=== PATIENT | male | born 1960 | race Caucasian/White ===

== ENCOUNTER 2023-12-15 08:11 | Outpatient (CLI) | payer BC, SELFPAY | END 2023-12-15 08:12 | disposition home or self-care (01) | PROVIDERS: PCP Student in an Organized Health Care Education/Training Program; Visit Provider Nurse Practitioner Family | DX: E11.621 Type 2 diabetes mellitus with foot ulcer (principal); L97.515 Non-pressure chronic ulcer of other part of right foot with muscle involvement without evidence of necrosis; L97.522 Non-pressure chronic ulcer of other part of left foot with fat layer exposed; L97.418 Non-pressure chronic ulcer of right heel and midfoot with other specified severity; I89.0 Lymphedema, not elsewhere classified; I73.9 Peripheral vascular disease, unspecified; Z79.4 Long term (current) use of insulin | CPT/HCPCS: 11042; 11043; 87070; 87186; 97597; G0463 ==

== ENCOUNTER 2023-12-15 10:35 | Outpatient (CLI) | payer BC, SELFPAY ==
--- NOTE | 2023-12-15 10:30 | XR_ITS ---
Final Report Patient: RODERICK RAMSAY Facility:?[facility] Patient ID:?[id number] Site Patient ID:?[id number]. Site :?1960 Study:?XRay Extremity Left 2V GREAT TOE-12/15/2023 11:29:42 AM Ordering Physician:BARBARA Final Report: Indication: Follow-up infection Technique: Two views left great toe Comparison: None Findings: Soft tissue swelling is present. No soft tissue gas or radiodense foreign body. Degenerative changes. Vascular calcifications. Incidental sesamoid bone noted at the plantar aspect of the interphalangeal joint. No periostitis or acute fracture. Impression: No evidence of acute fracture or acute osteomyelitis. Dictated by Shubham Ortiz MD @ 12/15/2023 12:02:59 PM (Electronic Signature)
--- NOTE | 2023-12-15 10:45 | XR_ITS ---
Final Report Patient: RODERICK RAMSAY Facility:?[facility] Patient ID:?[id number] Site Patient ID:?[id number]. Site :?1960 Study:?XRay Extremity Right 2V FOOT-12/15/2023 11:27:23 AM Ordering Physician:BARBARA Final Report: Indication: Follow-up surgery Technique: Right foot 2 views Comparison: None Findings: Calcaneus intact. Chronic changes to the navicular at the dorsal aspect. Severe hallux valgus with bunion. Multifocal postop changes to the forefoot including multiple bone resections. No evidence of acute fracture or acute periostitis. Impression: Multifocal postop changes to the forefoot without evidence of acute osteomyelitis or acute fracture. Dictated by Shubham Ortiz MD @ 12/15/2023 12:01:40 PM (Electronic Signature)
== END 2023-12-15 10:36 | disposition home or self-care (01) ==
PROVIDERS: PCP Student in an Organized Health Care Education/Training Program; Visit Provider Nurse Practitioner Family
DX: L97.515 Non-pressure chronic ulcer of other part of right foot with muscle involvement without evidence of necrosis (principal)
CPT/HCPCS: 73620; 73660; 87070

== ENCOUNTER 2023-12-22 10:22 | Outpatient (CLI) | payer BC, SELFPAY | END 2023-12-22 10:23 | disposition home or self-care (01) | PROVIDERS: PCP Student in an Organized Health Care Education/Training Program; Visit Provider Physician Assistant | DX: E11.621 Type 2 diabetes mellitus with foot ulcer (principal); L97.515 Non-pressure chronic ulcer of other part of right foot with muscle involvement without evidence of necrosis; L97.522 Non-pressure chronic ulcer of other part of left foot with fat layer exposed; I89.0 Lymphedema, not elsewhere classified; Z79.4 Long term (current) use of insulin; Z79.84 Long term (current) use of oral hypoglycemic drugs | CPT/HCPCS: 11042 ==

== ENCOUNTER 2023-12-29 08:41 | Outpatient (CLI) | payer BC, SELFPAY ==
[2023-12-29 10:33] LABS: Eosinophils Absolute Auto 0.46 K/uL (0.00-0.50); Eosinophils Percent Auto 5.3 % (0.0-7.0); Hematocrit 37.1 % (37.0-53.0); Hemoglobin* 11.7 gm/dL (13.5-17.5); Immature Granulocytes Abs Auto 0.03 K/uL (0.00-0.30); Immature Granulocytes Pct Auto 0.3 %; Lymphocytes Absolute Auto 2.65 K/uL (0.90-2.90); Lymphocytes Percent Auto 30.6 % (20-44); Mean Corpuscular HGB Conc 32 gm/dL (32-36); Mean Corpuscular Hemoglobin 27 pg (26-34); Mean Corpuscular Volume 85 fL (80-100); Monocytes Percent Auto 4.6 % (0.0-11.0); Neutrophils Absolute Auto 5.12 K/uL (1.7-7.0); Neutrophils Percent Auto 59.2 % (42.0-72.0); Platelet Count* 287 K/uL (140-440); RDW Coefficient of Variation % 13.1 % (11.5-15.5); Red Blood Count 4.35 m/uL (4.30-5.90); White Blood Count* 8.66 K/uL (4.50-11.00)
[2023-12-29 10:40] LABS: Slide Review Reflex No
[2023-12-29 10:45] LABS: Chloride* 105 mmol/L (96-114); Potassium* 4.9 mmol/L (3.6-5.1); Sodium* 139 mmol/L (135-149)
[2023-12-29 10:47] LABS: Creatinine* 1.4 mg/dL (0.5-1.5); Estimated Glomerular Filt Rate 57 ml/min
[2023-12-29 10:48] LABS: Anion Gap 8 mEq/L (7-15); Blood Urea Nitrogen* 34 mg/dL (7-30); Carbon Dioxide* 26 mmol/L (20-32); Glucose* 140 mg/dL (60-115)
[2023-12-29 10:49] LABS: Calcium* 9.8 mg/dL (8.4-10.6)
[2023-12-30 17:32] LABS: Prealbumin 19.5 mg/dL (20.0-40.0)
== END 2023-12-29 08:42 | disposition home or self-care (01) ==
LOC: WOUND 08:41
PROVIDERS: PCP Student in an Organized Health Care Education/Training Program; Visit Provider Nurse Practitioner Family
DX: E11.621 Type 2 diabetes mellitus with foot ulcer (principal); L97.516 Non-pressure chronic ulcer of other part of right foot with bone involvement without evidence of necrosis; L97.522 Non-pressure chronic ulcer of other part of left foot with fat layer exposed; L08.89 Other specified local infections of the skin and subcutaneous tissue; B95.61 Methicillin susceptible Staphylococcus aureus infection as the cause of diseases classified elsewhere; I73.9 Peripheral vascular disease, unspecified; I89.0 Lymphedema, not elsewhere classified; Z79.4 Long term (current) use of insulin
CPT/HCPCS: 11043; 36415; 80048; 84134; 85025; 86140; 96372; 97597; G0463; J0696

== ENCOUNTER 2024-01-01 12:34 | Outpatient (CLI) | payer BC, SELFPAY ==
--- NOTE | 2024-01-01 13:00 | MR_ITS ---
Patient: RODERICK RAMSAY Facility:?[facility] Patient ID:?[id number] Site Patient ID:?[id number]. Site :?1960 Study:?MRI-Extremity Right W/WO 20 CC DOTAREM FOOT OSTEO-01/01/2024 2:34:27 PM Ordering Physician:?ZHANG AGUILAR Final Report: EXAM: MRI OF THE LEFTRIGHT FOOT, WITHOUT CONTRAST CLINICAL INDICATION: Foot pain. COMPARISON PLAIN FILMS: None. COMPARISON CROSS-SECTIONAL IMAGING STUDIES: None. TECHNICAL: Axial, sagittal and coronal T1, PD and STIR images. FINDINGS: SOFT TISSUES JOINTS AND BONES: First ray: Bunion deformity of the great toe. No cortical volume loss, fatty marrow replacement, intramedullary edema or abnormal enhancement to suggest osteomyelitis. There is a ulceration with soft tissue thickening in the plantar medial aspect of the 1st MTP joint. There is a dissecting deep tract that extends laterally and dorsally with a fluid collection between the 1st and 2nd toes. The tract measures 2.6 cm in length. The fluid collection measures 2 cm x 2 cm x 1.5 cm size. Findings consistent with a subcutaneous abscess. Second ray: No cortical volume loss, intramedullary edema or fatty marrow replacement to suggest osteomyelitis. No findings to suggest septic arthritis. Chronic fracture deformity in the metatarsal diaphysis. Third ray: Chronic fracture deformity in the distal 3rd metatarsal diaphysis. Chronic fracture deformity in the great toe proximal phalanx. No evidence for osteomyelitis or septic arthritis. Fourth ray: Partial amputation at the level of the proximal metatarsal metaphysis. Fifth ray: Partial amputation at the level of the base of the proximal phalanx. No osteomyelitis. Diffuse intramedullary edema in the midfoot consistent with degenerative or neuropathic arthropathy. Diffuse subcutaneous edema. TENDONS AND MUSCLES: No evidence for tenosynovitis. Diffuse muscular atrophy and edema. IMPRESSION: 1. Ulceration at the 1st MTP joint region with deep tract and subcutaneous abscess between the 1st and 2nd toes. 2. No evidence for osteomyelitis. 3. Chronic fracture deformities of the 2nd and 3rd metatarsals and 3rd toe proximal phalanx. 4. 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 5. Findings in the midfoot consistent with degenerative or neuropathic arthropathy. Dictated by Doni Chavis MD @ 01/01/2024 3:06:23 PM ----- ADDENDUM ----- Examination is with and without contrast. Dotarem, 20 mL. Dictated by Doni Chavis MD @ Jan 01 2024 3:07PM Signed by:?Doin Chavis MD @01/01/2024 3:06:23 PM (Electronic Signature)
== END 2024-01-01 12:35 | disposition home or self-care (01) ==
LOC: MRI 12:34
PROVIDERS: PCP Student in an Organized Health Care Education/Training Program; Visit Provider Nurse Practitioner Family
DX: M79.672 Pain in left foot (principal); L97.529 Non-pressure chronic ulcer of other part of left foot with unspecified severity; M86.9 Osteomyelitis, unspecified
CPT/HCPCS: 73720; A9575

== ENCOUNTER 2024-01-05 07:48 | Outpatient (CLI) | payer BC, SELFPAY | END 2024-01-05 07:49 | disposition home or self-care (01) | PROVIDERS: PCP Student in an Organized Health Care Education/Training Program; Visit Provider Nurse Practitioner Family | DX: E11.621 Type 2 diabetes mellitus with foot ulcer (principal); L97.528 Non-pressure chronic ulcer of other part of left foot with other specified severity; L97.516 Non-pressure chronic ulcer of other part of right foot with bone involvement without evidence of necrosis; I89.0 Lymphedema, not elsewhere classified; Z79.4 Long term (current) use of insulin | CPT/HCPCS: 11042; 97597 ==

== ENCOUNTER 2024-01-06 13:51 | Outpatient (CLI) | payer BC, SELFPAY ==
--- NOTE | 2024-01-06 14:00 | US_ITS ---
Patient: RODERICK RAMSAY Facility:?[facility] Patient ID:?[id number] Site Patient ID:?[id number]. Site :?1960 Study:?US-Extremity INTV to read Bilateral HUGO-01/06/2024 3:53:15 PM Ordering Physician:?Sheela Guerra Final Report: EXAM: Lower extremity arterial doppler ultrasound TECHNIQUE: Bilateral lower extremity arteries were examined per exam specific protocol. Ultrasound performed using real-time euceda scale imaging (B-mode 2D), color-flow Doppler and spectral analysis. Peak systolic velocities (PSV), Doppler waveform quality and velocity ratios if applicable, were documented at sites per exam specific protocol. INDICATION: Diabetic foot ulcer COMPARISON: None available FINDINGS: RIGHT: CHUCK BONER: 90 cm/sec; triphasic waveforms PFA: 79 cm/sec; triphasic waveforms SFA PROX: 132 cm/sec; triphasic waveforms SFA MID: 112 cm/sec; triphasic waveforms SFA DIST: 88 cm/sec; triphasic waveforms POP: 108 cm/sec; triphasic waveforms CABLE FERRY OPERATOR: 121 cm/sec; biphasic waveforms Peroneal: 57 cm/sec; biphasic waveforms ANGEL: 67 cm/sec; biphasic waveforms DPA: 69 cm/sec; biphasic waveforms LEFT: CHUCK BONER: 76 cm/sec; triphasic waveforms PFA: 64 cm/sec; triphasic waveforms SFA PROX: 88 cm/sec; triphasic waveforms SFA MID: 84 cm/sec; triphasic waveforms SFA DIST: 90 cm/sec; triphasic waveforms POP: 55 cm/sec; triphasic waveforms CABLE FERRY OPERATOR: 82 cm/sec; triphasic waveforms Peroneal: 70 cm/sec; triphasic waveforms ANGEL: 65 cm/sec; triphasic waveforms DPA: 64 cm/sec; triphasic waveforms IMPRESSION: 1. Multiphasic flow throughout bilateral lower extremity arteries without evidence of arterial occlusion or hemodynamically significant stenosis. Dictated by Armando Garcia MD @ 01/07/2024 6:28:09 AM Signed by:?Armando Garcia MD @01/07/2024 6:28:09 AM (Electronic Signature)
== END 2024-01-06 13:52 | disposition home or self-care (01) ==
LOC: US 13:52
PROVIDERS: PCP Student in an Organized Health Care Education/Training Program; Visit Provider Nurse Practitioner Family
DX: E11.621 Type 2 diabetes mellitus with foot ulcer (principal); I73.9 Peripheral vascular disease, unspecified
CPT/HCPCS: 93926

== ENCOUNTER 2024-01-12 08:53 | Outpatient (CLI) | payer BC, SELFPAY | END 2024-01-12 08:54 | disposition home or self-care (01) | LOC: WOUND 08:53 | PROVIDERS: PCP Student in an Organized Health Care Education/Training Program; Visit Provider Nurse Practitioner Family | DX: E11.621 Type 2 diabetes mellitus with foot ulcer (principal); L97.516 Non-pressure chronic ulcer of other part of right foot with bone involvement without evidence of necrosis; L97.522 Non-pressure chronic ulcer of other part of left foot with fat layer exposed; I89.0 Lymphedema, not elsewhere classified; Z79.4 Long term (current) use of insulin; Z01.810 Encounter for preprocedural cardiovascular examination | CPT/HCPCS: 11043; 71046; G0463 ==

== ENCOUNTER 2024-01-19 07:52 | Outpatient (CLI) | payer BC, SELFPAY | END 2024-01-19 07:53 | disposition home or self-care (01) | LOC: WOUND 07:52 | PROVIDERS: PCP Student in an Organized Health Care Education/Training Program; Visit Provider Physician Assistant | DX: E11.621 Type 2 diabetes mellitus with foot ulcer (principal); L97.516 Non-pressure chronic ulcer of other part of right foot with bone involvement without evidence of necrosis; L97.522 Non-pressure chronic ulcer of other part of left foot with fat layer exposed; I89.0 Lymphedema, not elsewhere classified; Z79.4 Long term (current) use of insulin | CPT/HCPCS: 11042; 82962; G0277 ==

== ENCOUNTER 2024-01-22 09:00 | Outpatient (RCR) | payer BC, SELFPAY | END 2024-01-24 23:59 | disposition home or self-care (01) | LOC: WOUND 09:00 | PROVIDERS: PCP Student in an Organized Health Care Education/Training Program; Visit Provider Nurse Practitioner Family | DX: E11.621 Type 2 diabetes mellitus with foot ulcer (principal); L97.516 Non-pressure chronic ulcer of other part of right foot with bone involvement without evidence of necrosis; L97.522 Non-pressure chronic ulcer of other part of left foot with fat layer exposed; I89.0 Lymphedema, not elsewhere classified; Z79.4 Long term (current) use of insulin | CPT/HCPCS: 82962; G0277 ==

== ENCOUNTER 2024-01-26 07:44 | Outpatient (CLI) | payer BC, SELFPAY | END 2024-01-26 07:45 | disposition home or self-care (01) | LOC: WOUND 07:44 | PROVIDERS: PCP Student in an Organized Health Care Education/Training Program; Visit Provider Nurse Practitioner Family | DX: E11.621 Type 2 diabetes mellitus with foot ulcer (principal); L97.516 Non-pressure chronic ulcer of other part of right foot with bone involvement without evidence of necrosis; L97.522 Non-pressure chronic ulcer of other part of left foot with fat layer exposed; I73.9 Peripheral vascular disease, unspecified; I89.0 Lymphedema, not elsewhere classified; Z79.4 Long term (current) use of insulin | CPT/HCPCS: 11042; 82962; 97597; G0277 ==

== ENCOUNTER 2024-02-02 07:46 | Outpatient (CLI) | payer BC, SELFPAY | END 2024-02-02 07:47 | disposition home or self-care (01) | LOC: WOUND 07:46 | PROVIDERS: PCP Student in an Organized Health Care Education/Training Program; Visit Provider Nurse Practitioner Family | DX: E11.621 Type 2 diabetes mellitus with foot ulcer (principal); L97.516 Non-pressure chronic ulcer of other part of right foot with bone involvement without evidence of necrosis; I73.9 Peripheral vascular disease, unspecified; I89.0 Lymphedema, not elsewhere classified; Z79.4 Long term (current) use of insulin | CPT/HCPCS: 82962; 97597; G0277 ==

== ENCOUNTER 2024-02-09 07:45 | Outpatient (CLI) | payer BC, SELFPAY | END 2024-02-09 07:46 | disposition home or self-care (01) | LOC: WOUND 07:45 | PROVIDERS: PCP Student in an Organized Health Care Education/Training Program; Visit Provider Nurse Practitioner Family | DX: E11.621 Type 2 diabetes mellitus with foot ulcer (principal); L97.516 Non-pressure chronic ulcer of other part of right foot with bone involvement without evidence of necrosis; I89.0 Lymphedema, not elsewhere classified; Z79.4 Long term (current) use of insulin; Z79.84 Long term (current) use of oral hypoglycemic drugs | CPT/HCPCS: 82962; 97597; G0277 ==

== ENCOUNTER 2024-02-16 12:01 | Outpatient (CLI) | payer BC, SELFPAY | END 2024-02-16 23:00 | disposition home or self-care (01) | LOC: WOUND 03-02 12:01 | PROVIDERS: PCP Student in an Organized Health Care Education/Training Program; Visit Provider Nurse Practitioner Family | DX: E11.621 Type 2 diabetes mellitus with foot ulcer (principal); L97.516 Non-pressure chronic ulcer of other part of right foot with bone involvement without evidence of necrosis; I73.9 Peripheral vascular disease, unspecified; I89.0 Lymphedema, not elsewhere classified; Z79.4 Long term (current) use of insulin; Z79.84 Long term (current) use of oral hypoglycemic drugs | CPT/HCPCS: 11042; 82962; G0277 ==

== ENCOUNTER 2024-02-22 09:00 | Outpatient (RCR) | payer BC, SELFPAY | END 2024-02-22 12:02 | disposition home or self-care (01) | LOC: WOUND 09:00 | PROVIDERS: PCP Student in an Organized Health Care Education/Training Program; Visit Provider Nurse Practitioner Family | DX: E11.621 Type 2 diabetes mellitus with foot ulcer (principal); L97.516 Non-pressure chronic ulcer of other part of right foot with bone involvement without evidence of necrosis; L97.522 Non-pressure chronic ulcer of other part of left foot with fat layer exposed; I89.0 Lymphedema, not elsewhere classified; I73.9 Peripheral vascular disease, unspecified; Z79.4 Long term (current) use of insulin; Z79.84 Long term (current) use of oral hypoglycemic drugs; H61.22 Impacted cerumen, left ear | CPT/HCPCS: 11042; 69209; 82962; G0277 ==

== ENCOUNTER 2024-02-23 07:54 | Outpatient (CLI) | payer BC, SELFPAY | END 2024-02-23 07:55 | disposition home or self-care (01) | LOC: WOUND 07:54 | PROVIDERS: PCP Student in an Organized Health Care Education/Training Program; Visit Provider Nurse Practitioner Family | DX: E11.621 Type 2 diabetes mellitus with foot ulcer (principal); L97.516 Non-pressure chronic ulcer of other part of right foot with bone involvement without evidence of necrosis; I73.9 Peripheral vascular disease, unspecified; I89.0 Lymphedema, not elsewhere classified; Z79.4 Long term (current) use of insulin | CPT/HCPCS: 11042; 82962; G0277 ==

== ENCOUNTER 2024-03-01 07:55 | Outpatient (CLI) | payer BC, SELFPAY | END 2024-03-01 07:56 | disposition home or self-care (01) | LOC: WOUND 07:55 | PROVIDERS: PCP Student in an Organized Health Care Education/Training Program; Visit Provider Nurse Practitioner Family | DX: E11.621 Type 2 diabetes mellitus with foot ulcer (principal); L97.516 Non-pressure chronic ulcer of other part of right foot with bone involvement without evidence of necrosis; I89.0 Lymphedema, not elsewhere classified; Z79.4 Long term (current) use of insulin | CPT/HCPCS: 82962; 97597; G0277 ==

== ENCOUNTER 2024-03-08 07:46 | Outpatient (CLI) | payer BC, SELFPAY | END 2024-03-08 07:47 | disposition home or self-care (01) | LOC: WOUND 07:46 | PROVIDERS: PCP Student in an Organized Health Care Education/Training Program; Visit Provider Nurse Practitioner Family | DX: E11.621 Type 2 diabetes mellitus with foot ulcer (principal); L97.516 Non-pressure chronic ulcer of other part of right foot with bone involvement without evidence of necrosis; I73.9 Peripheral vascular disease, unspecified; I89.0 Lymphedema, not elsewhere classified; Z79.4 Long term (current) use of insulin; Z79.84 Long term (current) use of oral hypoglycemic drugs | CPT/HCPCS: 11042; 82962; G0277 ==

== ENCOUNTER 2024-03-15 07:54 | Outpatient (CLI) | payer BC, SELFPAY | END 2024-03-15 07:55 | disposition home or self-care (01) | LOC: WOUND 07:54 | PROVIDERS: PCP Student in an Organized Health Care Education/Training Program; Visit Provider Nurse Practitioner Family | DX: E11.621 Type 2 diabetes mellitus with foot ulcer (principal); L97.516 Non-pressure chronic ulcer of other part of right foot with bone involvement without evidence of necrosis; I73.9 Peripheral vascular disease, unspecified; I89.0 Lymphedema, not elsewhere classified; Z79.4 Long term (current) use of insulin; Z79.84 Long term (current) use of oral hypoglycemic drugs | CPT/HCPCS: 82962; 97597; G0277 ==

== ENCOUNTER 2024-03-23 08:00 | Outpatient (RCR) | payer BC, SELFPAY | END 2024-03-25 23:59 | disposition home or self-care (01) | LOC: WOUND 08:00 | PROVIDERS: PCP Student in an Organized Health Care Education/Training Program; Visit Provider Nurse Practitioner Family | DX: E11.621 Type 2 diabetes mellitus with foot ulcer (principal); L97.516 Non-pressure chronic ulcer of other part of right foot with bone involvement without evidence of necrosis; I73.9 Peripheral vascular disease, unspecified; I89.0 Lymphedema, not elsewhere classified; Z79.4 Long term (current) use of insulin; Z79.84 Long term (current) use of oral hypoglycemic drugs | CPT/HCPCS: 82962; G0277 ==

== ENCOUNTER 2024-03-24 09:06 | Outpatient (CLI) | payer BC, SELFPAY | END 2024-03-24 09:07 | disposition home or self-care (01) | LOC: WOUND 09:06 | PROVIDERS: PCP Student in an Organized Health Care Education/Training Program; Visit Provider Nurse Practitioner Family | DX: E11.621 Type 2 diabetes mellitus with foot ulcer (principal); L97.518 Non-pressure chronic ulcer of other part of right foot with other specified severity; Z79.4 Long term (current) use of insulin | CPT/HCPCS: G0463 ==

== ENCOUNTER 2024-04-04 07:59 | Outpatient (CLI) | payer BC, SELFPAY | END 2024-04-04 08:00 | disposition home or self-care (01) | LOC: WOUND 07:59 | PROVIDERS: PCP Student in an Organized Health Care Education/Training Program; Visit Provider Nurse Practitioner Family | DX: E11.621 Type 2 diabetes mellitus with foot ulcer (principal); L97.518 Non-pressure chronic ulcer of other part of right foot with other specified severity; I73.9 Peripheral vascular disease, unspecified; I89.0 Lymphedema, not elsewhere classified; Z79.4 Long term (current) use of insulin | CPT/HCPCS: G0463 ==